=== PATIENT | female | born 1965 | race Hispanic/Latino ===

== ENCOUNTER → 2021-05-24 13:41 | Outpatient (CLI) | payer SELFPAY ==
--- NOTE | 2021-05-24 13:48 | DI.MG.S_ITS ---
BILATERAL DIGITAL SCREENING MAMMOGRAM 3D/2D WITH CAD: 05/24/2021 CLINICAL: Baseline exam Routine screening. No prior exams were available for comparison. The tissue of both breasts is heterogeneously dense. This may lower the sensitivity of mammography. Current study was also evaluated with a Computer Aided Detection (CAD) system. No significant masses, calcifications, or other findings are seen in either breast. IMPRESSION: NEGATIVE There is no mammographic evidence of malignancy. A 1 year screening mammogram is recommended. This exam was interpreted at Station ID: [id number]. NOTE: For mammograms, a report in lay terms will be sent to the patient. Approximately 15% of breast malignancies will not be visualized mammographically. In the management of a palpable breast mass, a negative mammogram must not discourage biopsy of a clinically suspicious lesion. Electronically Signed By: Yasir recinos/lorenzo:05/24/2021 17:03:53 letter sent: Normal Exam ACR BI-RADS Category 1: Negative [id number]
== END ==
PROVIDERS: Referring Provider Family Medicine; Visit Provider Family Medicine
DX: Z12.31 Encounter for screening mammogram for malignant neoplasm of breast (principal)
CPT/HCPCS: 77063; 77067

== ENCOUNTER 2022-08-29 20:04 | Emergency (ER) | payer OTHER, SELFPAY ==
--- NOTE | 2022-08-29 08:13 | DI.MRI.S_ITS ---
PROCEDURE: MR ABDOMEN WO CON INDICATIONS: concern for choledocolithiasis TECHNIQUE: Coronal HASTE through the abdomen, axial 2-D FLASH in- and [id number], and breath-hold T2 FSE with fat saturation through the biliary system and pancreas. Oblique coronal and axial thin-slice HASTE, radial thick-slab HASTE centered on the extrahepatic bile ducts. Intravenous secretin: Not requested. COMPARISON: [facility], , ABDOMEN LIMITED, 08/29/2022, 21:57. FINDINGS: Image quality: Excellent. Pancreas and biliary system: There is a small common duct stone. There is mild biliary ductal dilatation. Pancreas is normal in morphology, without adjacent soft tissue edema. Pancreatic duct is normal in caliber, without developmental anomalies. Gallbladder contains multiple small stones. Other solid organs: Liver is normal in size. Spleen is normal in size. No adrenal nodules. Both kidneys are normal in size, without hydronephrosis. Nodes and vessels: No retroperitoneal or mesenteric adenopathy by size criteria. Aorta and inferior vena cava are normal in size. Bowel and peritoneum: Unenhanced bowel loops are normal in caliber. No free fluid. Lung bases: No basal pleural effusions. Heart size is normal. Bones and soft tissues: No ventral hernias. Bone marrow is of normal overall signal. IMPRESSION: 1. Cholelithiasis. 2. Small common duct stone with mild biliary ductal dilatation. Dictated by: Naveen Jane M.D. on 08/30/2022 at 8:38 Approved by: Naveen Jane M.D. on 08/30/2022 at 8:42
[2022-08-29 20:09] VITALS: BP 139/70; PULSE 82; RESP 16; TEMP 36.5; O2SAT 98; BMI 26.7
[2022-08-29 20:34] LABS: Bacteria Urine None Seen; Culture Indicated Urine Cult Not Indicated; RBC Urine 5-10/HPF (0-5/HPF); Squamous Epithelial Cell Urine None Seen (0-5/HPF); WBC Urine 0-1/HPF (0-5/HPF)
[2022-08-29 20:53] LABS: Add Manual Diff / Slide Review NO; Basophils Absolute Auto 0 /uL (0-100); Basophils Percent Auto 0.5 % (0-2); Eosinophils Absolute Auto 100 /uL (0-450); Eosinophils Percent Auto 0.8 % (2-4); Hemoglobin 13.7 g/dL (12.0-16.0); Lymphocytes Absolute Auto 1300 /uL (1100-4500); Lymphocytes Percent Auto 19.3 % (25-40); Mean Corpuscular HGB Conc 34.1 % (30-36); Monocytes Absolute Auto 300 /uL (0-900); Monocytes Percent Auto 4.7 % (3-14); Neutrophils Absolute Auto 5200 /uL (1500-7000); Neutrophils Percent Auto 74.7 % (50-75); Platelet Count 248 X10^3/uL (150-400); Red Blood Cell Count 4.71 X10^6/uL (4.0-5.2); Red Cell Distribution Width 12.9 % (11.6-14.8); White Blood Cell Count 6.9 X10^3/uL (4.5-11.0)
[2022-08-29 21:01] LABS: Albumin 4.6 g/dL (3.5-5.0); Albumin Globulin Ratio 1.2 (1.0-2.8); Alkaline Phosphatase 404 U/L (38-126); Aspartate Aminotransferase 624 IU/L (14-36); BUN Creatinine Ratio 30.8 (6-22); Bilirubin Total 1.5 mg/dL (0.2-1.3); Blood Urea Nitrogen 16 mg/dL (7-17); Calcium 9.8 mg/dL (8.4-10.2); Carbon Dioxide 26 mmol/L (22-32); Chloride 103 mmol/L (98-107); Estimated Glomerular Filt Rate > 60 mL/min (>60); Globulin 3.7 g/dL (1.7-4.1); Glucose 129 mg/dL (70-100); HEMOLYSIS < 15 (0-50); Lipase 250 U/L (23-300); Potassium 3.7 mmol/L (3.4-5.1); Sodium 138 mmol/L (137-145); Total Protein 8.3 g/dL (6.3-8.2)
--- NOTE | 2022-08-29 21:08 | ED_ITS ---
HPI - Abdominal Pain <Artemio Holcomb DO - Last Filed: 08/31/22 00:29> General Chief Complaint: Abdominal Pain Stated Complaint: abd pain Time Seen by Provider: 08/29/22 20:08 Source: patient and family Mode of arrival: Ambulatory History of Present Illness HPI narrative: 57-year-old female nonsmoker with no chronic medical problems presents with her in the chief complaint of 5 days of worsening epigastric pain with radiation to the back. She states it seems to be worse with food but denies other obvious provocation or palliation. She has nausea but denies any vomiting. She has had no fever or chills. She denies chest pain or shortness of breath. She denies any change in bowel habits. She denies any history of the same. Related Data Allergies Allergy/AdvReac Type Severity Reaction Status Date / Time No Known Drug Allergies Allergy Verified 08/29/22 20:16 Review of Systems <Artemio Holcomb DO - Last Filed: 08/31/22 00:29> Review of Systems Narrative: GENERAL: Denies chills, fatigue, malaise, fever, sweats. HEENT: Denies sinus pain, ear pain, sore throat, difficulty swallowing, dizziness. RESPIRATORY: Denies dyspnea, cough, wheezing, hemoptysis, sputum. CARDIOVASCULAR: Denies chest pain, palpitations, orthopnea, edema, GASTROINTESTINAL: See HPI : Denies dysuria, frequency, incontinence, hematuria, urinary retention. MUSCULOSKELETAL: denies weakness, joint pain, or bony pain SKIN: Denies rash, skin lesions, or other NEUROLOGIC: Denies weakness, headache, numbness, change in speech, confusion, seizures, incoordination. PSYCHIATRIC: No concerning psychosocial issues. 12 point review of systems is negative except for those stated above Patient History <DO Mikaela Dumont Last Filed: 08/31/22 00:29> Social History Smoking Status: Never smoker Smoking Status: Never smoker Exam <DO Mikaela Dumont Last Filed: 08/31/22 00:29> Narrative Exam Narrative: GENERAL: [57] year old patient appears stated age. Well-developed patient, in mild distress. HEAD: Atraumatic. Normocephalic. EYES: Pupils equal round and reactive. Extraocular motions intact. No scleral icterus. No injection or drainage. ENT: Nose without bleeding, purulent drainage. Throat without erythema, tonsillar hypertrophy or exudate. Airway patent. NECK: Trachea midline. Non tender CARDIOVASCULAR: Regular rate and rhythm without murmurs, gallops, or rubs. RESPIRATORY: Clear to auscultation. Breath sounds equal bilaterally. No wheezes, rales, or rhonchi. GASTROINTESTINAL: Abdomen soft, epigastric pain on palpation, nondistended. EXTREMITIES: No edema or joint tenderness. BACK: Nontender without deformity or crepitance. No flank tenderness. NEURO: AOx3. SKIN: No rash or erythema of visible areas Initial Vital Signs Initial Vital Signs: Vital Signs Temperature 97.7 F 08/29/22 20:09 Pulse Rate 82 08/29/22 20:09 Respiratory Rate 16 08/29/22 20:09 Blood Pressure 139/70 08/29/22 20:09 Pulse Oximetry 98 08/29/22 20:09 Oxygen Delivery Method Room Air 08/29/22 20:09 <Kylah Cruz DO - Last Filed: 08/30/22 17:26> Initial Vital Signs Initial Vital Signs: Vital Signs Temperature 97.7 F 08/29/22 20:09 Pulse Rate 82 08/29/22 20:09 Respiratory Rate 16 08/29/22 20:09 Blood Pressure 139/70 08/29/22 20:09 Pulse Oximetry 98 08/29/22 20:09 Oxygen Delivery Method Room Air 08/29/22 20:09 Course <Artemio Holcomb DO - Last Filed: 08/31/22 00:29> Orders Ordered: Discontinued Medications Sodium Chloride (Normal Saline 0.9%) 1,000 mls @ 1,000 mls/hr IV BOLUS ONE Stop: 08/29/22 22:10 Last Infusion: 08/30/22 00:13 Dose: 0 mls/hr Documented By: Infusion: 08/29/22 23:11 Dose: 1,000 mls/hr Documented By: Infusion: 08/29/22 22:34 Dose: 1,000 mls/hr Documented By: Infusion: 08/29/22 22:18 Dose: 0 mls/hr Documented By: Admin: 08/29/22 21:39 Dose: 1,000 mls/hr Documented By: SAMY Piperacillin Sod/Tazobactam (Sod 4.5 gm/ Sodium Chloride) 100 mls @ 200 mls/hr IV NOW ONE Stop: 08/29/22 23:29 Last Infusion: 08/30/22 00:35 Dose: 0 mls/hr Documented By: Admin: 08/30/22 00:04 Dose: 200 mls/hr Documented By: JOCELYN Sodium Chloride (Normal Saline 0.9%) 1,000 mls @ 200 mls/hr IV CONT KVNG Last Infusion: 08/30/22 05:39 Dose: 0 mls/hr Documented By: Admin: 08/30/22 00:04 Dose: 200 mls/hr Documented By: JOCELYN Sodium Chloride (Normal Saline 0.9%) 1,000 mls @ 125 mls/hr IV CONT KVNG Last Infusion: 08/30/22 17:23 Dose: 0 mls/hr Documented By: Admin: 08/30/22 10:32 Dose: 125 mls/hr Documented By: CHRISTY Ondansetron HCl (Ondansetron 4 Mg/2 Ml Inj) 4 mg IV NOW ONE Stop: 08/30/22 10:16 Last Admin: 08/30/22 10:31 Dose: 4 mg Documented By: CHRISTY Pantoprazole Sodium (Pantoprazole 40 Mg Vial) 40 mg IV NOW ONE Stop: 08/29/22 21:12 Last Admin: 08/29/22 21:39 Dose: 40 mg Documented By: SAMY Vital Signs Vital signs: Vital Signs - 8 hr 08/30/22 17:11 08/30/22 17:12 08/30/22 17:12 Pulse Rate 67 Respiratory Rate 16 Blood Pressure 144/67 H Pulse Oximetry 99 99 <Kylah Cruz, DO - Last Filed: 08/30/22 17:26> Orders Ordered: Discontinued Medications Sodium Chloride (Normal Saline 0.9%) 1,000 mls @ 1,000 mls/hr IV BOLUS ONE Stop: 08/29/22 22:10 Last Infusion: 08/30/22 00:13 Dose: 0 mls/hr Documented By: Infusion: 08/29/22 23:11 Dose: 1,000 mls/hr Documented By: Infusion: 08/29/22 22:34 Dose: 1,000 mls/hr Documented By: Infusion: 08/29/22 22:18 Dose: 0 mls/hr Documented By: Admin: 08/29/22 21:39 Dose: 1,000 mls/hr Documented By: SAMY Piperacillin Sod/Tazobactam (Sod 4.5 gm/ Sodium Chloride) 100 mls @ 200 mls/hr IV NOW ONE Stop: 08/29/22 23:29 Last Infusion: 08/30/22 00:35 Dose: 0 mls/hr Documented By: Admin: 08/30/22 00:04 Dose: 200 mls/hr Documented By: JOCELYN Sodium Chloride (Normal Saline 0.9%) 1,000 mls @ 200 mls/hr IV CONT KVNG Last Infusion: 08/30/22 05:39 Dose: 0 mls/hr Documented By: Admin: 08/30/22 00:04 Dose: 200 mls/hr Documented By: JOCELYN Sodium Chloride (Normal Saline 0.9%) 1,000 mls @ 125 mls/hr IV CONT KVNG Last Infusion: 08/30/22 17:23 Dose: 0 mls/hr Documented By: Admin: 08/30/22 10:32 Dose: 125 mls/hr Documented By: CHRISTY Ondansetron HCl (Ondansetron 4 Mg/2 Ml Inj) 4 mg IV NOW ONE Stop: 08/30/22 10:16 Last Admin: 08/30/22 10:31 Dose: 4 mg Documented By: CHRISTY Pantoprazole Sodium (Pantoprazole 40 Mg Vial) 40 mg IV NOW ONE Stop: 08/29/22 21:12 Last Admin: 08/29/22 21:39 Dose: 40 mg Documented By: SAMY Vital Signs Vital signs: Vital Signs - 8 hr 08/30/22 17:11 08/30/22 17:12 08/30/22 17:12 Pulse Rate 67 Respiratory Rate 16 Blood Pressure 144/67 H Pulse Oximetry 99 99 MDM - Abdominal Pain <Artemio Holcomb DO - Last Filed: 08/31/22 00:29> Lab Data 08/29/22 20:42 08/30/22 09:09 Labs: Lab Results 08/29/22 08/29/22 08/29/22 Range/Units 20:15 20:42 20:42 WBC 6.9 (4.5-11.0) X10^3/uL RBC 4.71 (4.0-5.2) X10^6/uL Hgb 13.7 (12.0-16.0) g/dL Hct 40.0 (36-46) % MCV 85.0 (80-100) fL MCH 29.0 (26-34) PG MCHC 34.1 (30-36) % RDW 12.9 (11.6-14.8) % Plt Count 248 (150-400) X10^3/uL Neut % (Auto) 74.7 (50-75) % Lymph % (Auto) 19.3 L (25-40) % Kimball % (Auto) 4.7 (3-14) % Eos % (Auto) 0.8 L (2-4) % Baso % (Auto) 0.5 (0-2) % Neut # (Auto) 5200 (6611-8973) /uL Lymph # (Auto) 1300 (5004-6748) /uL Kimball # (Auto) 300 (0-900) /uL Eos # (Auto) 100 (0-450) /uL Baso # (Auto) 0 (0-100) /uL Sodium 138 (137-145) mmol/L Potassium 3.7 (3.4-5.1) mmol/L Chloride 103 (98-107) mmol/L Carbon Dioxide 26 (22-32) mmol/L BUN 16 (7-17) mg/dL Creatinine 0.52 (0.52-1.04) mg/dL Estimated GFR > 60 (>60) mL/min BUN/Creatinine Ratio 30.8 H (6-22) Glucose 129 H (70-100) mg/dL Calcium 9.8 (8.4-10.2) mg/dL Total Bilirubin 1.5 H (0.2-1.3) mg/dL AST 624 H (14-36) IU/L ALT 960 H (<35) IU/L Alkaline Phosphatase 404 H (38-126) U/L Total Protein 8.3 H (6.3-8.2) g/dL Albumin 4.6 (3.5-5.0) g/dL Globulin 3.7 (1.7-4.1) g/dL Albumin/Globulin Ratio 1.2 (1.0-2.8) Lipase 250 (23-300) U/L Urine RBC 5-10/hpf H (0-5/HPF) Urine WBC 0-1/hpf (0-5/HPF) Ur Squamous Epith Cells None seen (0-5/HPF) Urine Bacteria None seen (None) Ur Culture Indicated? Cult not indicated 08/30/22 Range/Units 09:09 WBC (4.5-11.0) X10^3/uL RBC (4.0-5.2) X10^6/uL Hgb (12.0-16.0) g/dL Hct (36-46) % MCV (80-100) fL MCH (26-34) PG MCHC (30-36) % RDW (11.6-14.8) % Plt Count (150-400) X10^3/uL Neut % (Auto) (50-75) % Lymph % (Auto) (25-40) % Kimball % (Auto) (3-14) % Eos % (Auto) (2-4) % Baso % (Auto) (0-2) % Neut # (Auto) (1100-8019) /uL Lymph # (Auto) (9396-4248) /uL Kimball # (Auto) (0-900) /uL Eos # (Auto) (0-450) /uL Baso # (Auto) (0-100) /uL Sodium 140 (137-145) mmol/L Potassium 3.6 (3.4-5.1) mmol/L Chloride 108 H (98-107) mmol/L Carbon Dioxide 27 (22-32) mmol/L BUN 10 (7-17) mg/dL Creatinine 0.53 (0.52-1.04) mg/dL Estimated GFR > 60 (>60) mL/min BUN/Creatinine Ratio 18.9 (6-22) Glucose 108 H (70-100) mg/dL Calcium 8.6 (8.4-10.2) mg/dL Total Bilirubin 1.6 H (0.2-1.3) mg/dL AST 423 H (14-36) IU/L ALT 809 H (<35) IU/L Alkaline Phosphatase 365 H (38-126) U/L Total Protein 7.2 (6.3-8.2) g/dL Albumin 4.0 (3.5-5.0) g/dL Globulin 3.2 (1.7-4.1) g/dL Albumin/Globulin Ratio 1.3 (1.0-2.8) Lipase (23-300) U/L Urine RBC (0-5/HPF) Urine WBC (0-5/HPF) Ur Squamous Epith Cells (0-5/HPF) Urine Bacteria (None) Ur Culture Indicated? Point of care testing: Urine Dip Bedside Urine Glucose Negative Bedside Urine Bilirubin - Negative Bedside Urine Ketone - Negative Urine Specific [place] 1.015 Bedside Urine Occult Blood +++ Bedside Urine pH 6.0 Bedside Urine Protein + 30 Bedside Urine Urobilinogen - Negative Bedside Urine Nitrite - Negative Bedside Urine Leukocytes - Negative Esterase MDM Narrative Medical decision making narrative: [57] year old patient presents with epigastric pain Multiple etiologies for patient's symptoms considered including, but not limited to: [Pancreatitis versus gallbladder versus esophageal spasm versus other] Prior Charts reviewed in our EMR Primary Historian: patient Labs reviewed and interpreted by myself: No leukocytosis or left shift, no signs of anemia, primary electrolytes and renal function normal, however LFTs present a picture concerning for obstructive process of the biliary system including bili 1.5, AST 624, ALT 960, alk-phos 404. Lipase normal at 250 Imaging reviewed: Abdominal ultrasound notes cholelithiasis without cholecystitis. Suggestion of add no mi mitosis. Common bile duct is prominent at 8.6 cm Consultations: Discussed with Dr. Espinoza (Gen Surg at [place]) and given concern for CBD stone. Call to [facility] [place] (Dr. Stern) would consider accepting transfer if GI is on board. Call to Dr. Fuentes (GI). States we would need MRCP prior to transfer given GI guidelines. 0130 - MRCP ordered <Kylah Cruz DO - Last Filed: 08/30/22 17:26> Lab Data Labs: Lab Results 08/29/22 08/29/22 08/29/22 Range/Units 20:15 20:42 20:42 WBC 6.9 (4.5-11.0) X10^3/uL RBC 4.71 (4.0-5.2) X10^6/uL Hgb 13.7 (12.0-16.0) g/dL Hct 40.0 (36-46) % MCV 85.0 (80-100) fL MCH 29.0 (26-34) PG MCHC 34.1 (30-36) % RDW 12.9 (11.6-14.8) % Plt Count 248 (150-400) X10^3/uL Neut % (Auto) 74.7 (50-75) % Lymph % (Auto) 19.3 L (25-40) % Kimball % (Auto) 4.7 (3-14) % Eos % (Auto) 0.8 L (2-4) % Baso % (Auto) 0.5 (0-2) % Neut # (Auto) 5200 (2893-9481) /uL Lymph # (Auto) 1300 (8250-2077) /uL Kimball # (Auto) 300 (0-900) /uL Eos # (Auto) 100 (0-450) /uL Baso # (Auto) 0 (0-100) /uL Sodium 138 (137-145) mmol/L Potassium 3.7 (3.4-5.1) mmol/L Chloride 103 (98-107) mmol/L Carbon Dioxide 26 (22-32) mmol/L BUN 16 (7-17) mg/dL Creatinine 0.52 (0.52-1.04) mg/dL Estimated GFR > 60 (>60) mL/min BUN/Creatinine Ratio 30.8 H (6-22) Glucose 129 H (70-100) mg/dL Calcium 9.8 (8.4-10.2) mg/dL Total Bilirubin 1.5 H (0.2-1.3) mg/dL AST 624 H (14-36) IU/L ALT 960 H (<35) IU/L Alkaline Phosphatase 404 H (38-126) U/L Total Protein 8.3 H (6.3-8.2) g/dL Albumin 4.6 (3.5-5.0) g/dL Globulin 3.7 (1.7-4.1) g/dL Albumin/Globulin Ratio 1.2 (1.0-2.8) Lipase 250 (23-300) U/L Urine RBC 5-10/hpf H (0-5/HPF) Urine WBC 0-1/hpf (0-5/HPF) Ur Squamous Epith Cells None seen (0-5/HPF) Urine Bacteria None seen (None) Ur Culture Indicated? Cult not indicated 08/30/22 Range/Units 09:09 WBC (4.5-11.0) X10^3/uL RBC (4.0-5.2) X10^6/uL Hgb (12.0-16.0) g/dL Hct (36-46) % MCV (80-100) fL MCH (26-34) PG MCHC (30-36) % RDW (11.6-14.8) % Plt Count (150-400) X10^3/uL Neut % (Auto) (50-75) % Lymph % (Auto) (25-40) % Kimball % (Auto) (3-14) % Eos % (Auto) (2-4) % Baso % (Auto) (0-2) % Neut # (Auto) (3095-7320) /uL Lymph # (Auto) (5896-8140) /uL Kimball # (Auto) (0-900) /uL Eos # (Auto) (0-450) /uL Baso # (Auto) (0-100) /uL Sodium 140 (137-145) mmol/L Potassium 3.6 (3.4-5.1) mmol/L Chloride 108 H (98-107) mmol/L Carbon Dioxide 27 (22-32) mmol/L BUN 10 (7-17) mg/dL Creatinine 0.53 (0.52-1.04) mg/dL Estimated GFR > 60 (>60) mL/min BUN/Creatinine Ratio 18.9 (6-22) Glucose 108 H (70-100) mg/dL Calcium 8.6 (8.4-10.2) mg/dL Total Bilirubin 1.6 H (0.2-1.3) mg/dL AST 423 H (14-36) IU/L ALT 809 H (<35) IU/L Alkaline Phosphatase 365 H (38-126) U/L Total Protein 7.2 (6.3-8.2) g/dL Albumin 4.0 (3.5-5.0) g/dL Globulin 3.2 (1.7-4.1) g/dL Albumin/Globulin Ratio 1.3 (1.0-2.8) Lipase (23-300) U/L Urine RBC (0-5/HPF) Urine WBC (0-5/HPF) Ur Squamous Epith Cells (0-5/HPF) Urine Bacteria (None) Ur Culture Indicated? Point of care testing: Urine Dip Bedside Urine Glucose Negative Bedside Urine Bilirubin - Negative Bedside Urine Ketone - Negative Urine Specific [place] 1.015 Bedside Urine Occult Blood +++ Bedside Urine pH 6.0 Bedside Urine Protein + 30 Bedside Urine Urobilinogen - Negative Bedside Urine Nitrite - Negative Bedside Urine Leukocytes - Negative Esterase Imaging Data MRCP: Radiologist's Impression: PROCEDURE:? MR ABDOMEN WO CON ? INDICATIONS:? concern for choledocolithiasis ? TECHNIQUE:? Coronal HASTE through the abdomen, axial 2-D FLASH in- and [id number], and breath-hold T2 FSE with fat saturation through the biliary system and pancreas.? Oblique coronal and axial thin-slice HASTE, radial thick-slab HASTE centered on the extrahepatic bile ducts.? ? ? Intravenous secretin:? Not requested.? ? COMPARISON:? [facility], , US ABDOMEN LIMITED, 08/29/2022, 21:57. ? FINDINGS:? Image quality:? Excellent.? ? Pancreas and biliary system:? There is a small common duct stone.? There is mild biliary ductal dilatation.? Pancreas is normal in morphology, without adjacent soft tissue edema. ?Pancreatic duct is normal in caliber, without developmental anomalies.? Gallbladder contains multiple small stones.? ? Other solid organs:? Liver is normal in size.? Spleen is normal in size.? No adrenal nodules.? Both kidneys are normal in size, without hydronephrosis.? ? Nodes and vessels:? No retroperitoneal or mesenteric adenopathy by size criteria.? Aorta and inferior vena cava are normal in size.? ? Bowel and peritoneum:? Unenhanced bowel loops are normal in caliber.? No free fluid.? ? Lung bases:? No basal pleural effusions.? Heart size is normal.? ? Bones and soft tissues:? No ventral hernias.? Bone marrow is of normal overall signal.? ? IMPRESSION:? ? 1. Cholelithiasis. ? 2. Small common duct stone with mild biliary ductal dilatation. ? ? Dictated by: Naveen Jane M.D. on 08/30/2022 at 8:38 US - abdomen: Radiologist's Impression: PROCEDURE: US ABDOMEN LIMITED ? INDICATIONS:? epigastric pain and radiation to the back ? TECHNIQUE:? Real-time focused scanning was performed of the abdomen, with image documentati on.? ? COMPARISON:? None. ? FINDINGS:? Liver measures 15.4 cm.? Echogenic foci with ring down artifact/comet tail artifact are present within the gallbladder wall.? Wall thickness is normal measuring 2.4 mm. Multiple areas of increased echogenicity are present within the lumen.? Common bile duct measures 8.6 cm.? Slight intrahepatic biliary prominence within the right lobe. ? IMPRESSION:? ? Cholelithiasis without cholecystitis. ? Echogenic foci with ring down artifact within the gallbladder suggestive of adenomyomatosis. ? Common bile duct is mildly prominent.? This is overall nonspecific.? No visualized stone is identified. ? Slight intrahepatic biliary prominence within the right lobe, overall nonspecific.? ? ? Dictated by: Jeannette Christensen M.D. on 08/29/2022 at 23:11 MDM Narrative Medical decision making narrative: [57] year old patient presents with epigastric pain Multiple etiologies for patient's symptoms considered including, but not limited to: [Pancreatitis versus gallbladder versus esophageal spasm versus other] Prior Charts reviewed in our EMR Primary Historian: patient Labs reviewed and interpreted by myself: No leukocytosis or left shift, no signs of anemia, primary electrolytes and renal function normal, however LFTs present a picture concerning for obstructive process of the biliary system inc luding bili 1.5, AST 624, ALT 960, alk-phos 404. Lipase normal at 250 Imaging reviewed: Abdominal ultrasound notes cholelithiasis without cholecystitis. Suggestion of add no mi mitosis. Common bile duct is prominent at 8.6 cm Consultations: Discussed with Dr. Espinoza (Gen Surg at [place]) and given concern for CBD stone. [facility] [place] (Dr. Stern) would consider accepting transfer if GI is on board. Call to Dr. Fuentes (GI). States we would need MRCP prior to transfer given GI guidelines. 0130 - MRCP ordered Dr. Cruz-patient signed out to me by Dr. Holcomb I have seen evaluated patient myself. She is no longer having pain. MRCP does show a small common bile duct stone with mild biliary ductal dilation. Discussed case with Dr. Khoury on- call general surgery who states she should still probably be transferred to facility for ERCP. Repeat blood work shows mild increase in bilirubin 1.5-1.6 with a general decreasing and liver enzymes and alk-phos. Pain has been controlled no nausea or vomiting. Dr. FUENTES, GI at [facility] updated on MRCP results agrees patient needs to be transferred Dr. Tapia at [facility] accepts patient Critical Care Time <Artemio Holcomb DO - Last Filed: 08/31/22 00:29> Critical Care Time Critical Care Time: Yes Total Critical Care Time: 30 Attestation: The high probability of a clinically significant, sudden or life threatening deterioration of the [GI] system(s) required my full and direct attention, intervention and personal management. The aggregate critical care time was [30] minutes. This time is in addition to time spent performing reported procedures but includes the following: [x] Data Review and interpretation [x] Patient assessment and monitoring of vital signs [x] Documentation [x] Medication orders and management Discharge Plan Departure Patient Disposition: [facility] Clinical Impression: Choledocholithiasis Referrals: Yovani Caban DO [Primary Care Provider] - Stand Alone Forms: Work Release Note
--- NOTE | 2022-08-29 21:11 | DI.US.S_ITS ---
PROCEDURE: US ABDOMEN LIMITED INDICATIONS: epigastric pain and radiation to the back TECHNIQUE: Real-time focused scanning was performed of the abdomen, with image documentation. COMPARISON: None. FINDINGS: Liver measures 15.4 cm. Echogenic foci with ring down artifact/comet tail artifact are present within the gallbladder wall. Wall thickness is normal measuring 2.4 mm. Multiple areas of increased echogenicity are present within the lumen. Common bile duct measures 8.6 cm. Slight intrahepatic biliary prominence within the right lobe. IMPRESSION: Cholelithiasis without cholecystitis. Echogenic foci with ring down artifact within the gallbladder suggestive of adenomyomatosis. Common bile duct is mildly prominent. This is overall nonspecific. No visualized stone is identified. Slight intrahepatic biliary prominence within the right lobe, overall nonspecific. Dictated by: Jeannette Christensen M.D. on 08/29/2022 at 23:11 Approved by: Jeannette Christensen M.D. on 08/29/2022 at 23:13
[2022-08-29 21:15] LABS: Alanine Aminotransferase 960 IU/L (<35)
[2022-08-29] MEDS: SODIUM CHLORIDE 0.9% 1,000 ML 1000 ML IV (21:39)
[2022-08-29] MEDS: PANTOPRAZOLE 40 MG VIAL IV (21:39)
[2022-08-30] VITALS (41 sets, daily range): BP systolic 95–151; BP diastolic 51–82; PULSE 54–88; RESP 16–18; O2SAT 96–100
[2022-08-30] MEDS: SODIUM CHLORIDE 0.9% 1,000 ML 200 ML IV (00:04)
[2022-08-30] MEDS: PIPERACILLIN/TAZO 4.5 GM in SODIUM CHLORIDE 0.9% 100 ML IV (00:04)
[2022-08-30 09:31] LABS: Albumin Globulin Ratio 1.3 (1.0-2.8); Alkaline Phosphatase 365 U/L (38-126); Aspartate Aminotransferase 423 IU/L (14-36); BUN Creatinine Ratio 18.9 (6-22); Bilirubin Total 1.6 mg/dL (0.2-1.3); Blood Urea Nitrogen 10 mg/dL (7-17); Calcium 8.6 mg/dL (8.4-10.2); Carbon Dioxide 27 mmol/L (22-32); Chloride 108 mmol/L (98-107); Estimated Glomerular Filt Rate > 60 mL/min (>60); Globulin 3.2 g/dL (1.7-4.1); Glucose 108 mg/dL (70-100); HEMOLYSIS < 15 (0-50); Potassium 3.6 mmol/L (3.4-5.1); Sodium 140 mmol/L (137-145); Total Protein 7.2 g/dL (6.3-8.2)
[2022-08-30 09:39] LABS: Alanine Aminotransferase 809 IU/L (<35)
[2022-08-30] MEDS: ONDANSETRON 4 MG/2 ML INJ IV (10:31)
[2022-08-30] MEDS: SODIUM CHLORIDE 0.9% 1,000 ML 125 ML IV (10:32)
== END 2022-08-30 17:32 | disposition short-term general hospital (02) ==
PROVIDERS: Emergency Medicine; Emergency Provider Emergency Medicine; PCP Family Medicine
DX: K80.50 Calculus of bile duct without cholangitis or cholecystitis without obstruction (principal); R10.9 Unspecified abdominal pain
CPT/HCPCS: 36415; 74181; 76705; 80053; 81003; 81015; 83690; 85025; 93005; 93010; 96365; 96375; 99285; C9113; J2405; J2543

== ENCOUNTER → 2024-05-12 16:42 | Outpatient (CLI) | payer OTHER, SELFPAY ==
--- NOTE | 2024-05-12 16:43 | DI.MG.S_ITS ---
MM screening mammo BI: 05/12/2024. BI-RADS: 0 CLINICAL: 59-year old female for bilateral screening mammogram. Tyrer-Cuzick lifetime risk of 7.2%. No personal or first-degree family history of breast cancer. PRIOR EXAMS 05/24/2021. MAMMOGRAPHY TECHNIQUE: 2D and 3D (tomosynthesis) digital mammographic views obtained, with additional images as needed for full coverage. Current study was also evaluated with a Computer Aided Detection (CAD) system. DENSITY C. The breasts are heterogeneously dense, which may obscure small masses. MAMMOGRAPHY FINDINGS Right: MLO only, Central, MLO slice #23/57, Posterior depth, measuring 0.6 cm: Asymmetry needing additional imaging evaluation. Left: No suspicious mass, asymmetry, microcalcification, or other abnormality seen. IMPRESSION: Right (Asymmetry): MLO only, Central, MLO slice #23/57, Posterior depth, measuring 0.6 cm * Incomplete - asymmetry needing additional imaging evaluation. Left * No evidence of malignancy. RECOMMENDATIONS Right: MLO only, Central, Posterior depth * Further evaluation with diagnostic mammography and diagnostic ultrasound. OVERALL ASSESSMENT CATEGORY BI-RADS-0: Incomplete - Need Additional Imaging Evaluation. ELECTRONICALLY SIGNED: Michelle El M.D. on 05/13/2024 at 09:02:27 AM PT Interpreting Station ID: [id number]
== END ==
LOC: MAMMO 16:42
PROVIDERS: PCP Family Medicine; Referring Provider Family Medicine; Visit Provider Family Medicine
DX: Z12.31 Encounter for screening mammogram for malignant neoplasm of breast (principal); R92.333 Mammographic heterogeneous density, bilateral breasts
CPT/HCPCS: 77063; 77067

== ENCOUNTER → 2024-06-08 09:00 | Outpatient (CLI) | payer OTHER, SELFPAY ==
--- NOTE | 2024-06-08 09:02 | DI.MG.S_ITS ---
MM diagnostic mammo unilat RT, US breast RT limited: 06/08/2024 BI-RADS: 2 CLINICAL: 59-year old female for right diagnostic mammogram and right diagnostic breast ultrasound that is a recall from screening on 05/12/2024. Tyrer-Cuzick lifetime risk of 7.2%. No personal or first-degree family history of breast cancer. PRIOR EXAMS: 05/12/2024, 05/24/2021. MAMMOGRAPHY TECHNIQUE: 2D and 3D (tomosynthesis) digital mammographic views obtained, with additional images as needed for full coverage. Current study was also evaluated with a Computer Aided Detection (CAD) system. ULTRASOUND TECHNIQUE Real-time junior scale and color doppler imaging of the area of clinical interest was performed with image documentation. Right targeted breast ultrasound of the area of clinical interest and the axilla was performed with image documentation. DENSITY Right: C. The breasts are heterogeneously dense, which may obscure small masses. MAMMOGRAPHY FINDINGS Right (finding-1): MLO only, Central, Posterior depth, measuring 0.5 cm, previously measuring 0.6 cm: There is an asymmetry seen only on one view. ULTRASOUND FINDINGS Right (finding-1): Outer at 9:00, 2.5 cm from nipple, measuring 0.4 x 0.3 x 0.4 cm. Previous report: MLO only, Central: Correlating with findings on mammogram there is a simple anechoic cyst showing posterior acoustic enhancement. Right: No abnormal lymph nodes are seen in the axilla. IMPRESSION: Right * No evidence of malignancy with benign findings. RECOMMENDATIONS Bilateral * Annual screening mammography. COMMENTS: Findings and recommendations were conveyed to the patient during today's evaluation. OVERALL ASSESSMENT CATEGORY BI-RADS-2: Benign. [employer] recommends annual screening mammography beginning at age 40 for women with average risk of breast cancer. ELECTRONICALLY SIGNED: Michelle El M.D. on 06/08/2024 at 11:13:13 AM PT Interpreting Station ID: [id number]
== END ==
PROVIDERS: PCP Family Medicine; Referring Provider Family Medicine; Visit Provider Family Medicine
DX: N64.89 Other specified disorders of breast (principal); N60.01 Solitary cyst of right breast; R92.331 Mammographic heterogeneous density, right breast
CPT/HCPCS: 76642; 77065; G0279